=== PATIENT | female | born 1990 | race Caucasian/White ===

== ENCOUNTER 2018-06-09 12:07 | Inpatient (IN) | payer OTHER ==
[2018-06-09] MEDS ORDERED: Sodium Chloride 0.9% 10 ML Syringe FLUSH PRN ×2 (12:44→17:52)
[2018-06-09] MEDS ORDERED: Lactated Ringers 1,000 ML IV SCH ×3 (12:45→15:15)
[2018-06-09] MEDS ORDERED: fentaNYL 100 MCG/2 ML SDV IVPUSH PRN (17:52)
[2018-06-09] MEDS ORDERED: Acetaminophen 325 MG Tab PO PRN (17:52)
[2018-06-09] MEDS ORDERED: Ondansetron 4 MG/2 ML SDV IV PRN (17:52)
--- NOTE | 2018-06-09 18:04 | PCM.LDHP ---
L&D History of Present Illness - General Date of Service: 06/09/18 Admit Problem/Dx: Patient Status Order with Admit Dx/Problem 06/09/18 15:00 Admission Status [Patient Status] [ADT] Routine 06/09/18 17:52 Patient Status [ADT] Routine Admission Diagnosis/Problem Admission Diagnosis/Problem Source of Information: Patient History Limitations: Reports: No Limitations - Related Data Allergies/Adverse Reactions: Allergies Allergy/AdvReac Type Severity Reaction Status Date / Time amoxicillin Allergy Hives Verified 01/15/16 20:55 cefaclor [From Ceclor] Allergy Hives Verified 01/15/16 20:55 Penicillins Allergy Hives Verified 01/15/16 20:55 Home Medications: Home Meds Fluticasone Propionate [Flonase] 1 spray JAME DAILY 06/09/18 [History] Omeprazole 1 tab PO DAILY 06/09/18 [History] Vit W-Ca,Fe,FA(<1 mg) [ Vitamins] 1 tab PO DAILY 06/09/18 [ History] Past Medical History Other OB/BYN History: Precancerous cervical cells - Past Surgical History HEENT Surgical History: Reports: Oral Surgery Female Surgical History: Reports: LEEP Social & Family History - Family History Family Medical History: Noncontributory - Tobacco Use Smoking Status *Q: Current Every Day Smoker Years of Tobacco use: 11 Packs/Tins Daily: 1 - Caffeine Use Caffeine Use: Reports: Energy Drinks - Recreational Drug Use Recreational Drug Use: No H&P Review of Systems - Review of Systems: Review Of Systems: See Below General: Reports: No Symptoms HEENT: Reports: No Symptoms Pulmonary: Reports: No Symptoms Cardiovascular: Reports: No Symptoms Gastrointestinal: Reports: No Symptoms Genitourinary: Reports: No Symptoms Musculoskeletal: Reports: No Symptoms Skin: Reports: No Symptoms Psychiatric: Reports: No Symptoms Neurological: Reports: No Symptoms Hematologic/Lymphatic: Reports: No Symptoms Immunologic: Reports: No Symptoms L&D Exam - Exam Exam: See Below - Vital Signs Vital Signs: Last Vital Signs Temp 37.1 C 06/09/18 14:00 Pulse 69 06/09/18 14:00 Resp 16 06/09/18 14:00 BP 113/69 06/09/18 14:00 Pulse Ox 96 06/09/18 14:00 Weight: 76.3 kg - OB Specific Contraction Duration (sec): 40-80 Contraction Frequency (min): 2-4 Contraction Intensity: Mild Movement: Active Heart Tones: Present Heart Rate (FHR) Variability: Marked (>25 bpm) Presentation: Vertex - Rogers Score Rogers Score Cervix Position: Posterior Rogers Score Consistency: Soft Rogers Score Effacement: 31-50% Rogers Score Dilation: 1-2 cm Rogers Score Infant's Station: -2 Rogers Score Total: 5 - Exam General: Alert, Oriented HEENT: PERRLA, Conjunctiva Clear, EACs Clear, EOMI, Hearing Intact, Mucosa Moist & [place], Nares Patent, Normal Nasal Septum, Posterior Pharynx Clear, TMs Clear Neck: Supple, Trachea Midline Lungs: Clear to Auscultation, Normal Respiratory Effort Cardiovascular: Regular Rate, Regular Rhythm GI/Abdominal Exam: Normal Bowel Sounds, Soft, Non-Tender, No Organomegaly, No Distention, No Abnormal Bruit, No Mass, Pelvis Stable Rectal Exam: Normal Exam, Normal Rectal Tone Genitourinary: Normal external exam, Normal bimanual exam, Normal speculum exam Back Exam: Normal Inspection, Full Range of Motion Extremities: Normal Inspection, Normal Range of Motion, Non-Tender, No Pedal Edema, Normal Capillary Refill Skin: Warm, Dry, Intact Neurological: Cranial Nerves Intact, Reflexes Equal Bilateral DTR: 2+: Patella (L), Patella (R) Psychiatric: Alert, Normal Affect, Normal Mood - Patient Data Lab Results Last 24 hrs: Laboratory Results - last 24 hr 06/09/18 06/09/18 06/09/18 Range/Units 12:44 15:16 15:28 WBC 11.4 H (4.5-11.0) K/uL RBC 3.86 (3.30-5.50) M/uL Hgb 12.0 (12.0-15.0) g/dL Hct 35.4 L (36.0-48.0) % MCV 92 (80-98) fL MCH 31 (27-31) pg MCHC 34 (32-36) % Plt Count 175 (150-400) K/uL Neut % (Auto) 71 H (36-66) % Lymph % (Auto) 21 L (24-44) % [place] % (Auto) 6 (2-6) % Eos % (Auto) 2 (2-4) % Baso % (Auto) 0 (0-1) % Urine Color Yellow Urine Appearance Slightly cloudy Urine pH 6.0 (4.5-8.0) Ur Specific [place] 1.010 (1.008-1.030) Urine Protein Negative (NEGATIVE) mg/dL Urine Glucose (UA) Normal (NEGATIVE) mg/dL Urine Ketones Negative (NEGATIVE) mg/dL Urine Occult Blood Negative (NEGATIVE) Urine Nitrite Negative (NEGATIVE) Urine Bilirubin Negative (NEGATIVE) Urine Urobilinogen Normal (NORMAL) mg/dL Ur Leukocyte Esterase Negative (NEGATIVE) Urine RBC Not seen (0-5) Urine WBC 0-5 (0-5) Ur Epithelial Cells Moderate Amorphous Sediment Not seen Urine Bacteria Few Urine Mucus Not seen Urine Opiates Screen Negative (NEGATIVE) Ur Oxycodone Screen Negative (NEGATIVE) Urine Methadone Screen Negative (NEGATIVE) Ur Propoxyphene Screen Negative (NEGATIVE) Ur Barbiturates Screen Negative (NEGATIVE) Ur Tricyclics Screen Negative (NEGATIVE) Ur Phencyclidine Scrn Negative (NEGATIVE) Ur Amphetamine Screen Negative (NEGATIVE) U Methamphetamines Scrn Negative (NEGATIVE) Urine MDMA Screen Negative (NEGATIVE) U Benzodiazepines Scrn Negative (NEGATIVE) U Cocaine Metab Screen Negative (NEGATIVE) U Marijuana (THC) Screen Negative (NEGATIVE) Result Diagrams: 06/09/18 15:28 - Problem List (1) SNOMED Code(s): 30995492 ICD Code: Z34.90 - ENCNTR FOR SUPRVSN OF NORMAL , UNSP, UNSP TRIMESTER Status: Acute Current Visit: Yes Qualifiers: Weeks of gestation: 38 weeks Qualified Code(s): Z3A.38 - 38 weeks gestation of (2) Encounter for induction of labor SNOMED Code(s): 403914192 ICD Code: Z34.90 - ENCNTR FOR SUPRVSN OF NORMAL , UNSP, UNSP TRIMESTER Status: Acute Current Visit: Yes (3) Marked variability in heart rate SNOMED Code(s): 028991213 ICD Code: O36.8390 - MATERN CARE FOR ABNLT FETL HRT RATE OR RHYM, UNSP TRI, UNSP Status: Acute Current Visit: Yes Problem List Initiated/Reviewed/Updated: Yes Orders Last 24hrs: Active Orders 24 hr Category Date Time Status Admission Status [Patient Status] [ADT] Routine ADT 06/09/18 15:00 Active Patient Status [ADT] Routine ADT 06/09/18 17:52 Active Ambulate [RC] PER UNIT ROUTINE Care 06/09/18 17:52 Active Communication Order [RC] ASDIRECTED Care 06/09/18 17:52 Active Heart Tones [RC] PER UNIT ROUTINE Care 06/09/18 17:52 Active Non Stress Test [RC] Click to Edit Care 06/09/18 17:52 Active May Shower [RC] ASDIRECTED Care 06/09/18 17:52 Active Notify Provider Vital Signs [RC] PRN Care 06/09/18 17:52 Active Notify Provider [RC] PRN Care 06/09/18 17:52 Active OB Check [OM.PC] Click to Edit Care 06/09/18 12:44 Ordered Up ad Maru [RC] ASDIRECTED Care 06/09/18 17:52 Active VTE/DVT Education [RC] Click to Edit Care 06/09/18 17:53 Active Vital Signs [RC] PER UNIT ROUTINE Care 06/09/18 17:52 Active Clear Liquid Diet [DIET] Diet 06/09/18 Dinner Active Acetaminophen [Tylenol] Med 06/09/18 17:52 Ordered 650 mg PO Q4H PRN Lactated Ringers [Ringers, Lactated] 1,000 ml Med 06/09/18 12:45 Active IV ASDIRECTED Lactated Ringers [Ringers, Lactated] 1,000 ml Med 06/09/18 14:30 Active IV ASDIRECTED Lactated Ringers [Ringers, Lactated] 1,000 ml Med 06/09/18 15:15 Active IV ASDIRECTED Ondansetron [Zofran] Med 06/09/18 17:52 Ordered 4 mg IV Q4H PRN Oxytocin/Normal Saline [Pitocin in NS 20 Units/1,000 ML Med 06/09/18 15:15 Active ] 20 unit in 1,000 ml IV TITRATE Sodium Chloride 0.9% [Saline Flush] Med 06/09/18 12:44 Active 10 ml FLUSH ASDIRECTED PRN Sodium Chloride 0.9% [Saline Flush] Med 06/09/18 17:52 Ordered 10 ml FLUSH ASDIRECTED PRN Vancomycin 1 gm Med 06/09/18 16:00 Active Sodium Chloride 0.9% [Normal Saline] 250 ml IV Q12H fentaNYL [Sublimaze] Med 06/09/18 17:52 Ordered 100 mcg IVPUSH Q1H PRN DVT/VTE Prophylaxis Reflex [OM.PC] Routine Oth 06/09/18 17:52 Ordered Saline Lock Insert [OM.PC] Routine Oth 06/09/18 12:44 Ordered Saline Lock Insert [OM.PC] Routine Oth 06/09/18 17:52 Ordered Resuscitation Status Routine Resus Stat 06/09/18 17:52 Ordered Medication Orders Acetaminophen (Tylenol) 650 mg PO Q4H PRN PRN Reason: Pain (Mild 1-3) and fever Fentanyl (Sublimaze) 100 mcg IVPUSH Q1H PRN PRN Reason: Pain (moderate 4-6) Lactated Ringer's (Ringers, Lactated) 1,000 mls @ 999 mls/hr IV ASDIRECTED DEBORAH Last Admin: 06/09/18 12:30 Dose: 999 mls/hr Lactated Ringer's (Ringers, Lactated) 1,000 mls @ 999 mls/hr IV ASDIRECTED [facility] Last Admin: 06/09/18 12:40 Dose: 999 mls/hr Lactated Ringer's (Ringers, Lactated) 1,000 mls @ 0 mls/hr IV ASDIRECTED DEBORAH Oxytocin/Sodium Chloride (Pitocin In Ns 20 Units/1,000 Ml) 20 unit in 1,000 mls @ 6 mls/hr IV TITRATE DEBORAH; Protocol Last Titration: 06/09/18 17:24 Dose: 15 mls/hr Titration: 06/09/18 16:43 Dose: 12 mls/hr Titration: 06/09/18 16:09 Dose: 9 mls/hr Admin: 06/09/18 15:37 Dose: 2 munits/min, 6 mls/hr Vancomycin HCl 1 gm/ Sodium (Chloride) 250 mls @ 150 mls/hr IV Q12H [facility] Last Admin: 06/09/18 15:41 Dose: 150 mls/hr Ondansetron HCl (Zofran) 4 mg IV Q4H PRN PRN Reason: Nausea/Vomiting Sodium Chloride (Saline Flush) 10 ml FLUSH ASDIRECTED PRN PRN Reason: Keep Vein Open Sodium Chloride (Saline Flush) 10 ml FLUSH ASDIRECTED PRN PRN Reason: Keep Vein Open Assessment/Plan Comment:: 06/09/2018 27 yo at 38 5/7 gestational weeks was seen in the clinic today and noted to have bradycardia. Was sent to L&D and was noted to have marked variablity. Decision to medically induce was made. SVE-1/50/-2 [place]-5 FHTs occasionally category II No contractions Plan- Medical induction for FHTs Will initiate a Pitocin Test If FHTs continue category II will proceed to a primary Vancomycin per policy for GBS positive Continue to monitor for labor Continue to monitor FHTS Pain per patient's request
--- NOTE | 2018-06-09 20:44 | PCM.PNLD ---
Labor Progress Note - VS & Meds Vital Signs: Last Vital Signs Temp 36.8 C 06/09/18 19:29 Pulse 70 06/09/18 19:29 Resp 16 06/09/18 19:29 BP 136/58 L 06/09/18 19:29 Pulse Ox 95 06/09/18 19:29 Active Medications: Current Medications Acetaminophen (Tylenol) 650 mg PO Q4H PRN PRN Reason: Pain (Mild 1-3) and fever Fentanyl (Sublimaze) 100 mcg IVPUSH Q1H PRN PRN Reason: Pain (moderate 4-6) Lactated Ringer's (Ringers, Lactated) 1,000 mls @ 999 mls/hr IV ASDIRECTED [facility] Last Admin: 06/09/18 12:30 Dose: 999 mls/hr Lactated Ringer's (Ringers, Lactated) 1,000 mls @ 999 mls/hr IV ASDIRECTED [facility]BRO[facility] Last Admin: 06/09/18 12:40 Dose: 999 mls/hr Lactated Ringer's (Ringers, Lactated) 1,000 mls @ 0 mls/hr IV ASDIRECTED [facility] Oxytocin/Sodium Chloride (Pitocin In Ns 20 Units/1,000 Ml) 20 unit in 1,000 mls @ 6 mls/hr IV TITRATE DEBORAH; Protocol Last Titration: 06/09/18 18:49 Dose: 21 mls/hr Vancomycin HCl 1 gm/ Sodium (Chloride) 250 mls @ 150 mls/hr IV Q12H [facility] Last Admin: 06/09/18 15:41 Dose: 150 mls/hr Ondansetron HCl (Zofran) 4 mg IV Q4H PRN PRN Reason: Nausea/Vomiting Sodium Chloride (Saline Flush) 10 ml FLUSH ASDIRECTED PRN PRN Reason: Keep Vein Open Discontinued Medications Sodium Chloride (Saline Flush) 10 ml FLUSH ASDIRECTED PRN PRN Reason: Keep Vein Open - Uterine Contractions Uterine Monitoring Mode: External [place] Contraction Frequency (min): 1-4 Contraction Duration (sec): 40-80 Contraction Intensity: Mild Uterine Resting Tone: Soft - Monitoring Heart Rate (FHR) Variability: Marked (>25 bpm) - Labor Progress (Free Text) Labor Progress: 06/09/2018 FHTs remain to be a category II at times Contractions irregular on pitocin Education done with patient on risk for continuing pitocin versus a primary c- section Patient and her significant other have weighed their options and want to proceed with a primary . OR crew called, Dr. Mcgowan notified
--- NOTE | 2018-06-09 20:46 | PCM.PNLD ---
Labor Progress Note - VS & Meds Vital Signs: Last Vital Signs Temp 36.8 C 06/09/18 19:29 Pulse 70 06/09/18 19:29 Resp 16 06/09/18 19:29 BP 136/58 L 06/09/18 19:29 Pulse Ox 95 06/09/18 19:29 Active Medications: Current Medications Acetaminophen (Tylenol) 650 mg PO Q4H PRN PRN Reason: Pain (Mild 1-3) and fever Fentanyl (Sublimaze) 100 mcg IVPUSH Q1H PRN PRN Reason: Pain (moderate 4-6) Lactated Ringer's (Ringers, Lactated) 1,000 mls @ 999 mls/hr IV ASDIRECTED [facility]BORAH Last Admin: 06/09/18 12:30 Dose: 999 mls/hr Lactated Ringer's (Ringers, Lactated) 1,000 mls @ 999 mls/hr IV ASDIRECTED [facility] Last Admin: 06/09/18 12:40 Dose: 999 mls/hr Lactated Ringer's (Ringers, Lactated) 1,000 mls @ 0 mls/hr IV ASDIRECTED [facility] Oxytocin/Sodium Chloride (Pitocin In Ns 20 Units/1,000 Ml) 20 unit in 1,000 mls @ 6 mls/hr IV TITRATE DEBORAH; Protocol Last Titration: 06/09/18 18:49 Dose: 21 mls/hr Vancomycin HCl 1 gm/ Sodium (Chloride) 250 mls @ 150 mls/hr IV Q12H [facility] Last Admin: 06/09/18 15:41 Dose: 150 mls/hr Ondansetron HCl (Zofran) 4 mg IV Q4H PRN PRN Reason: Nausea/Vomiting Sodium Chloride (Saline Flush) 10 ml FLUSH ASDIRECTED PRN PRN Reason: Keep Vein Open Discontinued Medications Sodium Chloride (Saline Flush) 10 ml FLUSH ASDIRECTED PRN PRN Reason: Keep Vein Open - Uterine Contractions Uterine Monitoring Mode: External [place] Contraction Frequency (min): 1-4 Contraction Duration (sec): 40-80 Contraction Intensity: Mild Uterine Resting Tone: Soft - Monitoring Heart Rate (FHR) Variability: Marked (>25 bpm) Decelerations: Variable - Labor Progress (Free Text) Labor Progress: 06/09/2018 Patient requesting to remain trying pitocin for induction of a vaginal delivery. Explained risks and benefits to patient. FHTs occasionally marked variability with lower baseline. Will continue to monitor patient closely
[2018-06-09] MEDS ORDERED: cefOXitin 1 GM Vial ONE (20:47)
[2018-06-09] MEDS ORDERED: Oxytocin 10 Units/1 ML SDV ONE ×2 (20:47→21:04)
[2018-06-09] MEDS ORDERED: Meropenem 500 MG SDV ONE ×2 (21:02→21:04)
[2018-06-09] MEDS ORDERED: Sodium Chloride 0.9% 10 ML ONE (21:04)
[2018-06-09] MEDS ORDERED: ePHEDrine 50 MG/ML SDV ONE (21:25)
[2018-06-09] MEDS ORDERED: Naloxone 0.4 MG/ML SDV IV PRN (23:22)
[2018-06-09] MEDS ORDERED: HYDROmorphone/Normal Saline 15 MG/30 ML PCA IV PRN (23:22)
[2018-06-09] MEDS: Meropenem 500 MG in Sodium Chloride 0.9% 50 ML IV SCH (23:58)
[2018-06-10] MEDS: Dextrose 5%-Lactated Ringers 1,000 ML IV SCH ×2 (00:38→07:43)
[2018-06-10] MEDS: Meropenem 500 MG in Sodium Chloride 0.9% 50 ML IV SCH ×2 (03:35→11:02)
[2018-06-10] MEDS ORDERED: Fluticasone Propionate Nasal Spray 16 GM Bottle NASBOTH PRN (08:17)
[2018-06-10] MEDS ORDERED: Dextrose 5%-Lactated Ringers 1,000 ML IV SCH (08:30)
[2018-06-10] MEDS: Docusate Sodium 100 MG Cap PO SCH ×2 (11:04→21:00)
[2018-06-10] MEDS: Acetaminophen/oxyCODONE 325-5 MG Tab PO PRN ×2 (16:31→21:00)
[2018-06-10] MEDS: Ibuprofen 600 MG Tab PO PRN (18:09)
[2018-06-11] MEDS: Acetaminophen/oxyCODONE 325-5 MG Tab PO PRN ×4 (01:07→22:34)
[2018-06-11] MEDS ORDERED: Magnesium Hydroxide 400 MG/5 ML Susp 30 ML Cup PO ONE (09:00)
[2018-06-11] MEDS ORDERED: Lanolin 100% Cream 40 GM Tube TOP PRN (09:08)
[2018-06-11] MEDS: Ibuprofen 600 MG Tab PO PRN ×2 (09:17→18:18)
[2018-06-11] MEDS: Bisacodyl 5 MG Tab PO SCH ×2 (09:19→21:24)
[2018-06-11] MEDS: Docusate Sodium 100 MG Cap PO SCH ×2 (09:19→21:24)
[2018-06-11] MEDS ORDERED: Magnesium Hydroxide 400 MG/5 ML Susp 30 ML Cup PO PRN (10:00)
--- NOTE | 2018-06-11 14:22 | OR ---
DATE OF PROCEDURE: 06/09/2018 INDICATIONS: This is a 27-year-old presenting with her first at near-term. She was seen and was noted to have a heart rate of around 105 in terms of the heart tones, which did not show much in the way of variability. After further evaluation, it was felt that she meets indication for a section due to the findings as outlined in Jewels Corbett's, CNM, note. The plan is to proceed with a section with a spinal anesthetic. The potential risks of the procedure were reviewed with the patient including bleeding, infection, injury to mother or baby, the likely need for subsequent sections, if her is hard, and the facility is equipped to do vaginal births after section were all gone over, and she wishes to proceed. DETAILS OF PROCEDURE: The patient was taken to the operating room. After spinal anesthetic was placed, the patient was positioned in a supine position with a roll underneath the right hip. Bar[place]ona catheter was inserted, and the abdomen was prepped and draped. A transverse Pfannenstiel-type incision was made and carried down through the skin and subcutaneous tissue and through the anterior rectus sheath. Subrectus sheath flaps were then raised superiorly and inferiorly, and the midline peritoneum divided. Peritoneal reflection of the bladder on the uterus was then divided, and the bladder dissected downward. A transverse lower uterine incision was made and a viable female was delivered through the vertex presentation. The fluid present in the uterus was cleared. The cord was clamped and cut, and routine care given off the field per Dr. Jewels Corbett. The scores at 1 and 5 minutes were 8 and 9 respectively. Placenta and membranes were then delivered without difficulty and it was notable that the placenta had quite extensive calcifications and on further inspection appeared to have a focal area of subtle abruption. Although, it was notable that the amniotic fluid itself was clear upon entering the uterus. The patient was given an IV and intrauterine cefoxitin and IV meropenem. Good uterine contractions were noted. The uterus was then closed with 2 layers of 2-0 Vicryl stitch as was also used for the peritoneal reflection of the bladder, being reapproximated over the uterine incision. The midline peritoneum and musculature were then approximated with a #2 Vicryl stitch, and the anterior rectus sheath was similarly closed with a #2 Vicryl stitch. The subcutaneous tissue was then closed with 2 layers of 3- 0 Vicryl stitch deep and a 4-0 Vicryl subcuticular stitch. Steri-Strip was applied. The patient was taken to the recovery room in a satisfactory condition. There were no evident complications. Foreign Mcgowan MD /[id number]
--- NOTE | 2018-06-11 15:07 | PN ---
DATE OF SERVICE: 06/10/2018 The patient has been afebrile with stable vital signs. She is status post caesarean section last evening. Both her and the baby appeared to be doing well at this point. Hemoglobin is 12.4, which is stable from preoperatively. Urine output has been satisfactory. Plan will be to back down on the IV rate, begin a full-liquid diet and advancing it as tolerated to a more regular diet, begin some bowel stimulation, maximize activity, and work with pulmonary toilet. Foreign Mcgowan MD /[id number]
--- NOTE | 2018-06-11 15:08 | PN ---
DATE OF SERVICE: 06/11/2018 The patient has been afebrile with stable vital signs. Oral intake is fairly good. She is passing some gas. No bowel movement as of yet. She is switched over to oral pain medication. We will give her some bowel stimulation today and have her get in the shower. She probably will be ready for discharge home tomorrow. The antibiotic issue with her strep issue was reviewed with nursing, and the meropenem that she received postoperatively should be sufficient for treatment of that. Foreign Mcgowan MD /[id number]
[2018-06-12] MEDS: Ibuprofen 600 MG Tab PO PRN ×2 (00:16→08:13)
[2018-06-12] MEDS: Acetaminophen/oxyCODONE 325-5 MG Tab PO PRN ×2 (05:26→10:00)
[2018-06-12] MEDS: Docusate Sodium 100 MG Cap PO SCH (08:07)
[2018-06-12] MEDS: Bisacodyl 5 MG Tab PO SCH (08:07)
[2018-06-12 10:58] VITALS: BP 132/61
--- NOTE | 2018-06-12 11:20 | DISCH ---
ADMISSION DIAGNOSES: heart tones, category 2; contractions irregular, on Pitocin. DISCHARGE DIAGNOSES: section with spinal anesthetic, delivery of female. HISTORY: Agnes Perez is a 27-year-old female, presenting with first at near- term. She was first seen and was noted to have heart rate of 105 for heart tones, which did not show much in the way of variability. She was on Pitocin, and she did meet the needs for due to above findings. After preoperative evaluation and discussion of possible risks and possible complications, she wished to proceed with surgical procedure. HOSPITAL COURSE: Agnes had her on 06/09/2018. No complications. On postoperative day #1, hemoglobin 12.4. Urine output satisfactory. IV was decreased. She was started on bowel stimulation. On postoperative day #2, she remained afebrile, changed to oral pain medication, and was able to shower. On postoperative day #3, she was able to be discharged to home without any complications. PHYSICAL EXAMINATION: GENERAL: Agnes Perez is a 27-year-old female. VITAL SIGNS: Height is 5 feet 2 inches. Weight is 168 pounds. TPR is 98.2, 66, 16, and blood pressure 112/58. HEENT: Negative. NECK: Supple. HEART: Regular rate and rhythm. LUNGS: Clear. ABDOMEN: Soft. Aquacel dressing is on at the time of rounds. EXTREMITIES: Without peripheral edema and no calf tenderness. DISPOSITION: Discharged to home. CONDITION: Stable and improving. FOLLOWUP APPOINTMENT: Kaylie Em PA-C, on 06/16/2018 at 11 a.m. Followup appointment with Jewels Corbett CNM, primary care provider, to be scheduled. DISCHARGE MEDICATIONS: Home Medications: 1. Percocet 5/325 mg 1 to 2 every 4 hours p.r.n. pain, #40. 2. Milk of magnesia 30 mL p.o. to take one daily, 2 to be sent home with the patient. 3. Dulcolax 10 mg oral b.i.d. until BM. 4. Colace 100 mg b.i.d., #100. 5. Motrin 600 mg oral q.6 hours p.r.n. pain, #40. 6. Lanolin 40 grams topical, use as directed. Tube will be sent home with the patient. She is to resume her home medications of; 1. vitamins one daily. 2. Omeprazole one tablet oral daily. 3. Flonase one spray in each nostril once daily. DISCHARGE DIET: Usual diet as tolerated. Drink 8 to 10 glasses of water a day. ACTIVITY: As tolerated. No lifting over 10 pounds or baby in car seat for 6 weeks[address] Driving, do not drive while on narcotic pain medication. Shower/bathing, may shower. No tub bath or swimming for 6 weeks. DISCHARGE INSTRUCTIONS: Notify provider if any fever, increased pain, swelling, redness, or drainage. Wound incision care, keep site clean and dry.
== END 2018-06-12 14:45 | disposition home or self-care (01) | DRG 766 ==
LOC: JP.OBCHECK 12:07 → JP.OB 15:00 → OBSVTOIN 21:47 → JP.OB 21:47 → JP.MS 23:31
PROVIDERS: ADMIT Surgery; ATTEND Advanced Practice Midwife
PROC: 10D00Z1 Extraction of Products of Conception, Low, Open Approach (ICD-10-PCS; principal; 2018-06-09)
PROC: 3E033VJ Introduction of Other Hormone into Peripheral Vein, Percutaneous Approach (ICD-10-PCS; 2018-06-09)
DX: O76 Abnormality in fetal heart rate and rhythm complicating labor and delivery (principal); O99.334 Smoking (tobacco) complicating childbirth; Z3A.38 38 weeks gestation of pregnancy; Z37.0 Single live birth; O99.824 Streptococcus B carrier state complicating childbirth; Z88.1 Allergy status to other antibiotic agents; Z88.0 Allergy status to penicillin
CPT/HCPCS: 36415; 80305-QW; 81001; 85025; 94762; 99211; A9270-GY; J0694; J1170; J2185; J2405; J2590; J3370; J7042; J7050; J7120

== ENCOUNTER 2019-05-10 08:18 | Day surgery (SDC) | payer MEDICAID, OTHER ==
[~2019-05-10 08:18] MED LIST: Bupivacaine 0.5% 50 ML MDV ONE; Dexamethasone 4 MG/ML SDV ONE; Glycopyrrolate 0.2 MG/ML 5 ML MDV ONE; Lidocaine 1% with EPINEPHrine 1:100,000 50 ML MDV ONE; Neostigmine Methylsulfate 1 MG/ML 5 ML Syringe ONE; Ondansetron 4 MG/2 ML SDV ONE; Propofol 200 MG/20 ML SDV ONE; Rocuronium 50 MG/5 ML Vial ONE; Succinylcholine 200 MG/10 ML MDV ONE; fentaNYL 250 MCG/5 ML SDV ONE
[2019-05-10] MEDS ORDERED: Levofloxacin/Dextrose 5%-Water 500 MG in Premix Bag 1 BAG IV ONE (09:00)
[2019-05-10] MEDS ORDERED: Dextrose 5%-Lactated Ringers 1,000 ML IV SCH (09:15)
[2019-05-10] MEDS ORDERED: Midazolam 1 MG/ML 2 ML SDV ONE (10:56)
[2019-05-10] MEDS ORDERED: Bacitracin Oint 1 GM U/D Packet ONE (11:16)
[2019-05-10 12:35] VITALS: BP 103/65; PULSE 57
--- NOTE | 2019-05-18 23:41 | OR ---
DATE OF PROCEDURE: 05/10/2019 PREOPERATIVE DIAGNOSIS: Hidradenitis suppurativa, right labial area. POSTOPERATIVE DIAGNOSIS: Hidradenitis suppurativa, right labial area. OPERATIVE PROCEDURE: Excision of hidradenitis suppurativa, right labial area ([id number]). ANESTHESIA: General. INDICATIONS FOR PROCEDURE: This is a 28-year-old female presenting with active hidradenitis suppurativa involving the right labial region. After discussion, she wished to proceed with excision. Potential risks including bleeding, infection, some cosmetic or functional deformity of the labia were all reviewed with the patient and she wishes to proceed. DETAILS OF PROCEDURE: The patient was taken to the operating room, and after general endotracheal anesthesia was induced, the labial area and surrounding skin were prepped and draped. A vertically oriented elliptical incision around the area of concern was then made and carried down through the skin and subcutaneous tissue. Using combination of sharp and cautery dissection, the area of involvement was removed maintaining an area of relatively noninflamed subcutaneous tissue at the level of the excision, i.e. the area of the gross infection was not entered, and this specimen delivered from the field. Incision was then closed with 2 layers of 4-0 Vicryl stitch deep and a 5-0 Prolene skin stitch. Dressing was applied. The patient was taken to the recovery room in satisfactory condition. There were no evident complications. Foreign Mcgowan MD /[id number]
== END 2019-05-10 12:50 | disposition home or self-care (01) ==
LOC: JP.SDS 08:18
PROVIDERS: ATTEND Surgery
DX: L73.2 Hidradenitis suppurativa (principal); N76.4 Abscess of vulva; F17.200 Nicotine dependence, unspecified, uncomplicated
CPT/HCPCS: 11462; 81025; 87070; 87075; 87077; 87205; 88304; J1956; J2250; J2704; J3010; J3490; J7042; 32555; J0330; J1100; J2405; J2710

== ENCOUNTER 2020-10-17 05:29 | Inpatient (IN) | payer MEDICAID ==
[2020-10-17] MEDS ORDERED: Lactated Ringers 1,000 ML IV SCH (06:00)
[2020-10-17] MEDS ORDERED: cefOXitin 1 GM Vial ONE (06:34)
[2020-10-17] MEDS ORDERED: Oxytocin 10 Units/1 ML SDV ONE ×2 (06:34→07:42)
[2020-10-17] MEDS ORDERED: ePHEDrine 50 MG/ML SDV ONE (06:58)
[2020-10-17] MEDS ORDERED: cefOXitin 2 GM Vial ONE (06:58)
[2020-10-17] MEDS ORDERED: Levofloxacin 500 MG/20 ML SDV ONE (07:15)
[2020-10-17] MEDS ORDERED: Lactated Ringers 1,000 ML ONE (07:42)
[2020-10-17] MEDS ORDERED: Oxytocin 10 Units/1 ML SDV IM ONE (07:45)
[2020-10-17] MEDS ORDERED: fentaNYL 100 MCG/2 ML SDV IVPUSH ONE (08:54)
[2020-10-17] MEDS ORDERED: Ondansetron 4 MG/2 ML SDV IVPUSH PRN (09:03)
[2020-10-17] MEDS ORDERED: hydrOXYzine HCL 100 MG/2 ML SDV IM PRN (09:04)
[2020-10-17] MEDS ORDERED: Dextrose 5%-Lactated Ringers 1,000 ML IV SCH (09:15)
[2020-10-17] MEDS ORDERED: Acetaminophen 500 MG Tab PO SCH (10:00)
[2020-10-17] MEDS: Ibuprofen 600 MG Tab PO SCH ×3 (11:00→21:51)
[2020-10-17] MEDS: Pantoprazole 40 MG Tab.CR PO SCH (11:36)
[2020-10-17] MEDS: Sertraline 50 MG Tab PO SCH (11:42)
[2020-10-17] MEDS: Acetaminophen/oxyCODONE 325-5 MG Tab PO PRN ×2 (12:29→21:50)
[2020-10-17] MEDS ORDERED: Lanolin 100% Cream 40 GM Tube TOP PRN (18:53)
[2020-10-18] MEDS: Ibuprofen 600 MG Tab PO SCH ×2 (04:26→09:02)
[2020-10-18] MEDS ORDERED: Levofloxacin/Dextrose 5%-Water 500 MG in Premix Bag 1 BAG IV SCH (08:00)
[2020-10-18 08:15] VITALS: BP 120/59; PULSE 78
[2020-10-18] MEDS ORDERED: Bisacodyl 5 MG Tab PO SCH (09:00)
[2020-10-18] MEDS ORDERED: Docusate Sodium 100 MG Cap PO SCH (09:00)
[2020-10-18] MEDS: Sertraline 50 MG Tab PO SCH (09:02)
[2020-10-18] MEDS ORDERED: Ibuprofen 200 MG Tab, 24 Tab Bulk Bottle PO PRN (10:23)
[2020-10-18] MEDS ORDERED: Acetaminophen 325 MG Tab, 50 Tab Bulk Bottle PO PRN (10:23)
[2020-10-18] MEDS: Acetaminophen/oxyCODONE 325-5 MG Tab PO PRN (10:59)
[2020-10-18] MEDS: Pantoprazole 40 MG Tab.CR PO SCH (11:07)
--- NOTE | 2020-10-19 10:07 | DISCH ---
ADMISSION DIAGNOSES: Repeat section with term . DISCHARGE DIAGNOSES: section on 10/17/2020 with delivery of a viable male infant, 10/17/2020. Surgeon: Foreign Mcgowan MD. HISTORY: Agnes Perez is a 30-year-old female who had a previous , and she presented to the hospital for a scheduled . After preoperative evaluation and discussion of possible risks and possible complications, she wished to proceed with surgical procedure. HOSPITAL COURSE: Agnes had her section on 10/17/2020. She had no operative complications. On postoperative day, she was up ambulating, tolerating a regular diet. IV was decreased to 100 mL per hour, and she would like to have it saline locked. On postoperative day 1, pain was managed, activity good, oral intake and output adequate, vital signs stable, and she was able to be discharged to home later in the evening. PHYSICAL EXAMINATION: GENERAL: Agnes Perez is a 30-year-old female. She is alert and orientated. VITAL SIGNS: TPR at 0700 of 96.6, 78, and 16. Blood pressure 120/59. HEENT: Negative. NECK: Supple. HEART: Regular rate and rhythm. LUNGS: Clear. ABDOMEN: She has a low Pfannenstiel incision. It is glued, clean, and dry. Abdominal binder is on. FOLLOWUP APPOINTMENT: With Kaylie Em PA-C on 10/28/2020 at 11:15 a.m. HOME MEDICATIONS: 1. Percocet 5/325 mg one p.o. every 6 hours #28 for severe pain. 2. She is to take scheduled Motrin and alternate with scheduled acetaminophen. 3. Colace 100 mg p.o. b.i.d. #60. 4. Dulcolax 10 mg p.o. b.i.d. p.r.n. constipation #30. DIET: Regular diet as tolerated. Drink 8 to 10 glasses of water a day. ACTIVITY: No lifting greater than 10 pounds and baby in car seat. DRIVING: Do not drive for 1 week and while on the Percocet. DISCHARGE INSTRUCTIONS: Shower/bathing: May shower. No tub bathing or swimming for 6 weeks. Wound incision care: Keep operative site clean and dry. Wear abdominal binder for 2 weeks or longer. Notify provider if fever, increased pain, swelling, redness, drainage, nausea, or vomiting. SPECIAL INSTRUCTIONS: Use incentive spirometer 10 times every hour while awake for 1 week. /[id number]
--- NOTE | 2020-10-20 13:24 | PN ---
DATE OF SERVICE: 10/18/2020 SUBJECTIVE: Agnes is postoperative day #1 following a section. She is up ambulating. Pain is controlled with Percocet, ibuprofen, and Tylenol. She is nursing her baby. Oral intake 900. Voiding independently. REVIEW OF SYSTEMS: Remainder of review of systems negative for any pertinent positives and negatives. OBJECTIVE: GENERAL: Agnes Perez is a pleasant 30-year-old female. She is alert and orientated. VITAL SIGNS: TPR 97.2, 82, 18, blood pressure 140/51. HEENT: Negative. NECK: Supple. HEART: Regular rate and rhythm. LUNGS: Clear. ABDOMEN: Incision looks good. EXTREMITIES: Without peripheral edema. ASSESSMENT: Repeat , excision of peritoneal nodule for term with history of previous , peritoneal nodule outer aspect of the uterus, 2 mm. Date of procedure: 10/17/2020. Surgeon: Foreign Mcgowan MD. PLAN: 1. Saline lock IV. 2. May shower. 3. Colace 100 mg b.i.d. p.o. 4. Dulcolax 10 mg p.o. b.i.d. 5. Continue use of incentive spirometer. 6. We will evaluate p.r.n. or in a.m. Kaylie Em PA-C /[id number]
--- NOTE | 2020-10-26 18:25 | OR ---
DATE OF PROCEDURE: 10/17/2020 SURGEON: Foreign Mcgowan MD PREOPERATIVE DIAGNOSIS: Term with history of previous section. POSTOPERATIVE DIAGNOSES: 1. Term with history of previous section. 2. Peritoneal nodule on the anterior aspect of the uterus. OPERATIVE PROCEDURES: 1. Repeat section (99888). 2. Excision of peritoneal nodule on the anterior aspect of the uterus (04014). ANESTHESIA: Spinal. BUILDING REPAIR MAINTENANCE SUPERVISOR: Jewels Corbett CNM INDICATIONS FOR PROCEDURE: This is a 30-year-old female presenting with a term with history of previous . She had been planning a scheduled repeat section. will undergo a presently. Potential risks including bleeding, infection, injury to mother and her baby were discussed, and the patient wishes to proceed. DETAILS OF PROCEDURE: The patient was taken to the operating room. After spinal anesthetic was placed, a Barahona catheter was inserted, and the patient was positioned with a roll underneath the right hip and the abdomen prepped and draped. The previous Pfannenstiel incision was then reused and carried down through the skin, subcutaneous tissue, and through the anterior rectus sheath. Subrectus sheath flaps were then raised superiorly and inferiorly and midline peritoneum divided. Peritoneal reflection of the bladder on the uterus was then divided and low transverse uterine incision was made and a viable male was delivered through the vertex presentation. Cord clamped and cut. Routine care given off the field per Jewels Corbett. Placenta was delivered without difficulty along with the membranes. The patient was given IV and intrauterine oxytocin and IV cefoxitin. Good uterine contractions were noted. The uterus was closed with 2 layers of 2- 0 Vicryl stitch as was the peritoneal reflection of the bladder on the uterus. The patient was noted to have a roughly 2 mm white firm nodule on the anterior aspect of the uterus just to the left of the midline and slightly superior to the uterine closure site. This was excised, sent for histologic evaluation. At that point, no further problems noted. The midline peritoneum was reapproximated with #2 Vicryl stitch as was the anterior rectus sheath. Subcutaneous tissue was approximated with 2 layers of 3-0 and 4-0 Vicryl stitch deep and 4-0 Vicryl subcuticular stitch. Surgical glue was then applied, and the patient was taken to the recovery room in satisfactory condition. Per ACOG recommendations, Jewels Corbett participated as land surveyor assistant in this case. Foreign Mcgowan MD /[id number]
== END 2020-10-18 15:00 | disposition home or self-care (01) | DRG 788 ==
LOC: JP.SDS 05:29 → JP.MS 07:43
PROVIDERS: ADMIT Advanced Practice Midwife; ATTEND Surgery
PROC: 10D00Z1 Extraction of Products of Conception, Low, Open Approach (ICD-10-PCS; principal; 2020-10-17)
PROC: 0DBW0ZZ Excision of Peritoneum, Open Approach (ICD-10-PCS; 2020-10-17)
DX: O34.211 Maternal care for low transverse scar from previous cesarean delivery (principal); Z37.0 Single live birth; Z3A.39 39 weeks gestation of pregnancy
CPT/HCPCS: 36415; 59409; 80305-QW; 85025; 85027; 86850; 86900; 86901; 88305; 88307; A9270-GY; J0694; J1956; J2590; J3010; J7120; J7121

== ENCOUNTER 2021-07-01 18:46 | Emergency (ER) | payer MEDICAID, SELFPAY ==
[2021-07-01] MEDS ORDERED: Ibuprofen 800 MG Tab PO ONE (20:08)
[2021-07-01] MEDS ORDERED: Sodium Chloride 0.9% 1,000 ML IV SCH (20:30)
--- NOTE | 2021-07-01 21:00 | EDM.PDOC ---
ED HPI GENERAL MEDICAL PROBLEM - General Chief Complaint: ENT Problem Stated Complaint: FEVER, HEADACHE, EARACHE Time Seen by Provider: 07/01/21 19:42 Source of Information: Reports: Patient, RN History Limitations: Reports: No Limitations - History of Present Illness INITIAL COMMENTS - FREE TEXT/NARRATIVE: chief complaint: fever. sore throat. 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 She was so sick today her had to watch the 3 year old and assist with the 8 month old baby. She is tired, sick, not eating or drinking much today. report her urine is dark and slight painful. breast feeding, denies Onset: Gradual Onset Date: 06/30/21 Duration: Getting Worse Location: Reports: Generalized, Other (sore throat) Quality: Reports: Ache, Other (generalized body pain) Severity: Severe Improves with: Reports: None Worsens with: Reports: None Context: Reports: Activity Associated Symptoms: Reports: Fever/Chills, Loss of Appetite, Malaise throat and ears Pain Score (Numeric/FACES): 6 - Related Data Allergies Allergy/AdvReac Type Severity Reaction Status Date / Time amoxicillin Allergy Hives Verified 07/01/21 19:59 cefaclor [From Ceclor] Allergy Hives Verified 07/01/21 19:59 Penicillins Allergy Hives Verified 07/01/21 19:59 Home Meds: Home Meds #103/Iron Fumarate/Fa [ ] 1 tab PO DAILY 05/09/19 [History] Sertraline [Zoloft] 100 mg PO BEDTIME 05/09/19 [History] Omeprazole 20 mg PO ACBREAKFAST 10/15/20 [History] Ibuprofen [Motrin] 600 mg PO Q6HR tablet 10/18/20 [Rx] Past Medical History HEENT History: Reports: Impaired Vision, Other (See Below) Other HEENT History: Wears glasses. Gastrointestinal History: Reports: GERD [employer] [place] History: Reports: Other [employer] [place] History: Precancerous cervical cells Psychiatric History: Reports: Depression Dermatologic History: Reports: Other (See Below) Other Dermatologic History: Cyst removed from Left buttock- 2013, cyst removed from pelvic area - Infectious Disease History Infectious Disease History: Reports: Chicken Pox, Measles, Mumps - Past Surgical History HEENT Surgical History: Reports: Oral Surgery Female Surgical History: Reports: Section, LEEP Social & Family History - Family History Family Medical History: No Pertinent Family History - Tobacco Use Tobacco Use Status *Q: Current Every Day Tobacco User Years of Tobacco use: 15 Packs/Tins Daily: 1 - Caffeine Use Caffeine Use: Reports: Energy Drinks, Soda - Recreational Drug Use Recreational Drug Use: No - Living Situation & Occupation Living situation: Reports: , with Family (stay at home Mom) ED ROS GENERAL - Review of Systems Review Of Systems: See Below Constitutional: Reports: Fever, Chills, Malaise, Fatigue, Decreased Appetite HEENT: Reports: Ear Pain, Rhinitis, Sinus Problem, Throat Pain Respiratory: Reports: No Symptoms Cardiovascular: Reports: No Symptoms Endocrine: Reports: No Symptoms GI/Abdominal: Reports: No Symptoms : Reports: Frequency, Pain, Urgency Musculoskeletal: Reports: Muscle Pain Skin: Reports: No Symptoms Neurological: Reports: No Symptoms Psychiatric: Reports: No Symptoms Hematologic/Lymphatic: Reports: No Symptoms Immunologic: Reports: No Symptoms ED EXAM, GENERAL - Physical Exam Exam: See Below Exam Limited By: No Limitations General Appearance: Alert, WD/WN, Mild Distress, Other (crying during exam) Eye Exam: Bilateral Eye: EOMI, PERRL Ears: Normal External Exam, Normal Canal Ear Exam: Bilateral Ear: TM Red, TM Bulging Nose: Normal Inspection Throat/Mouth: Normal Lips, Normal Teeth, Normal Gums, Normal Voice, No Airway Compromise, Inflammation, Other (pharynx with inflammation, uvula midline without deviation, no exudate noted) Head: Atraumatic, Normocephalic Neck: Normal Inspection, Supple, Non-Tender, Full Range of Motion Respiratory/Chest: No Respiratory Distress, Lungs Clear, Normal Breath Sounds, No Accessory Muscle Use, Chest Non-Tender Cardiovascular: Normal Peripheral Pulses, Regular Rate, Rhythm, No Edema, No Gallop, No JVD, No Murmur, No Rub GI/Abdominal: Normal Bowel Sounds, Soft, Non-Tender, No Organomegaly, No Distention, No Abnormal Bruit, No Mass (Female) Exam: Deferred Rectal (Female) Exam: Deferred Back Exam: Normal Inspection, Full Range of Motion, NT Extremities: Normal Inspection, Normal Range of Motion, Non-Tender, Normal Capillary Refill, No Pedal Edema Neurological: No Motor/Sensory Deficits Psychiatric: Tearful Skin Exam: Warm, Dry, Intact, Normal Color, No Rash Lymphatic: No Adenopathy Course - Vital Signs Last Recorded V/S: Last Vital Signs Temp 100.0 F 07/01/21 21:49 Pulse 129 H 07/01/21 21:12 Resp 20 07/01/21 21:12 BP 117/76 07/01/21 21:12 Pulse Ox 95 07/01/21 21:12 - Orders/Labs/Meds Orders: Active Orders 24 hr Category Date Time Status CULTURE STREP A CONFIRMATION [] Stat Lab 07/01/21 21:05 Results STREP SCRN A RAPID W CULT CONF [] Stat Lab 07/01/21 21:05 Results Levofloxacin/Dextrose 5%-Water [Levaquin in D5W 500 MG/ Med 07/01/21 21:20 Active 100 ML] 500 mg Premix Bag 1 bag IV ONETIME Sodium Chloride 0.9% [Normal Saline] 1,000 ml Med 07/01/21 20:30 Active IV ASDIRECTED Medication Orders Sodium Chloride (Normal Saline) 1,000 mls @ 999 mls/hr IV ASDIRECTED DEBORAH Last Admin: 07/01/21 20:59 Dose: 999 mls/hr Documented by: DEEDEE Levofloxacin/Dextrose 500 mg/ (Premix) 100 mls @ 100 mls/hr IV ONETIME ONE Stop: 07/01/21 22:19 Last Admin: 07/01/21 21:41 Dose: 100 mls/hr Documented by: DEEDEE Labs: Laboratory Tests 07/01/21 07/01/21 07/01/21 Range/Units 20:58 20:58 21:05 WBC 17.3 H (4.5-11.0) K/uL RBC 4.59 (3.30-5.50) M/uL Hgb 14.4 D (12.0-15.0) g/dL Hct 41.9 (36.0-48.0) % MCV 91 (80-98) fL MCH 31 (27-31) pg MCHC 34 (32-36) % Plt Count 214 (150-400) K/uL Neut % (Auto) 77.9 H (36-66) % Lymph % (Auto) 13.5 L (24-44) % [place] % (Auto) 7.3 H (2-6) % Eos % (Auto) 0.8 L (2-4) % Baso % (Auto) 0.5 (0-1) % Sodium 135 L (140-148) mmol/L Potassium 4.0 (3.6-5.2) mmol/L Chloride 99 L (100-108) mmol/L Carbon Dioxide 23 (21-32) mmol/L Anion Gap 17.0 H (5.0-14.0) mmol/L BUN 13 (7-18) mg/dL Creatinine 0.7 (0.6-1.0) mg/dL Est Cr Clr Drug Dosing 96.33 mL/min Estimated GFR (MDRD) > 60 (>60) Glucose 99 (74-106) mg/dL Calcium 9.2 (8.5-10.1) mg/dL Total Bilirubin 0.3 (0.2-1.0) mg/dL AST 17 (15-37) U/L ALT 27 (12-78) U/L Alkaline Phosphatase 85 (46-116) U/L Total Protein 7.6 (6.4-8.2) g/dL Albumin 3.7 (3.4-5.0) g/dL Globulin 3.9 H (2.3-3.5) g/dL Albumin/Globulin Ratio 1.0 L (1.2-2.2) Urine Color (YELLOW) Urine Appearance (CLEAR) Urine pH (5.0-8.0) Ur Specific Kennedy (1.008-1.030) Urine Protein (NEGATIVE) mg/dL Urine Glucose (UA) (NEGATIVE) mg/dL Urine Ketones (NEGATIVE) mg/dL Urine Occult Blood (NEGATIVE) Urine Nitrite (NEGATIVE) Urine Bilirubin (NEGATIVE) Urine Urobilinogen (0.2-1.0) EU/dL Ur Leukocyte Esterase (NEGATIVE) Urine RBC (0-5) Urine WBC (0-5) Ur Epithelial Cells Amorphous Sediment Urine Bacteria Urine Mucus Urine HCG, Qual SARS CoV-2 RNA Rapid DANDRE Negative 07/01/21 07/01/21 Range/Units 21:39 21:39 WBC (4.5-11.0) K/uL RBC (3.30-5.50) M/uL Hgb (12.0-15.0) g/dL Hct (36.0-48.0) % MCV (80-98) fL MCH (27-31) pg MCHC (32-36) % Plt Count (150-400) K/uL Neut % (Auto) (36-66) % Lymph % (Auto) (24-44) % [place] % (Auto) (2-6) % Eos % (Auto) (2-4) % Baso % (Auto) (0-1) % Sodium (140-148) mmol/L Potassium (3.6-5.2) mmol/L Chloride (100-108) mmol/L Carbon Dioxide (21-32) mmol/L Anion Gap (5.0-14.0) mmol/L BUN (7-18) mg/dL Creatinine (0.6-1.0) mg/dL Est Cr Clr Drug Dosing mL/min Estimated GFR (MDRD) (>60) Glucose (74-106) mg/dL Calcium (8.5-10.1) mg/dL Total Bilirubin (0.2-1.0) mg/dL AST (15-37) U/L ALT (12-78) U/L Alkaline Phosphatase (46-116) U/L Total Protein (6.4-8.2) g/dL Albumin (3.4-5.0) g/dL Globulin (2.3-3.5) g/dL Albumin/Globulin Ratio (1.2-2.2) Urine Color Yellow (YELLOW) Urine Appearance Slightly cloudy A (CLEAR) Urine pH 6.0 (5.0-8.0) Ur Specific Kennedy >= 1.030 (1.008-1.030) Urine Protein 30 H (NEGATIVE) mg/dL Urine Glucose (UA) Negative (NEGATIVE) mg/dL Urine Ketones Negative (NEGATIVE) mg/dL Urine Occult Blood Negative (NEGATIVE) Urine Nitrite Negative (NEGATIVE) Urine Bilirubin Negative (NEGATIVE) Urine Urobilinogen 0.2 (0.2-1.0) EU/dL Ur Leukocyte Esterase Negative (NEGATIVE) Urine RBC 0-5 (0-5) Urine WBC 0-5 (0-5) Ur Epithelial Cells Moderate Amorphous Sediment Not seen Urine Bacteria Moderate Urine Mucus Not seen Urine HCG, Qual Negative SARS CoV-2 RNA Rapid DANDRE Meds: Medications Generic Name Dose Route Start Last Admin Trade Name Freq PRN Reason Stop Dose Admin Sodium Chloride 1,000 mls @ 999 mls/hr 07/01/21 20:30 07/01/21 20:59 Normal Saline IV 999 mls/hr ASDIRECTED DEBORAH Administration Levofloxacin/Dextrose 500 mg/ 100 mls @ 100 mls/hr 07/01/21 21:20 07/01/21 21:41 Premix IV 07/01/21 22:19 100 mls/hr ONETIME ONE Administration Discontinued Medications Generic Name Dose Route Start Last Admin Trade Name Freq PRN Reason Stop Dose Admin Ibuprofen 800 mg 07/01/21 20:08 07/01/21 20:59 Ibuprofen 800 Mg Tab PO 07/01/21 20:09 800 mg ONETIME ONE Administration - Re-Assessments/Exams Free Text/Narrative Re-Assessment/Exam: 07/01/21 21:08 Fever 103 vital signs 103.1-129-20 B/P 117/76 oxygen sat 95% on room air discussed with Mrs. Perez will test for illness and disease rehydrate with IV Fluids, given Motrin 800 mg po once agrees with plan of care. 07/01/21 21:24 CBC 17.3, hct 14.4, hct 41.9, plt 214, Rapid strep negative will give Levaquin 500mg IV once awaiting lab results continues to be febrile 103.1 pulse 120's discussed plan of care with Mrs. Perez 07/01/21 21:40 reports feeling much better with Motrin and IV fluids. wants to go home. discussed will need to wait on urine results. urine sample given. await results 07/01/21 22:03 urine no acute infection- does have + ketones negative hcg. 07/01/21 22:07 feeling much better, temp now at 100 will treat for ear infection and pharyngitis Departure - Departure Time of Disposition: 22:12 Disposition: Home, Self-Care 01 Condition: Good Clinical Impression: Otitis media, Pharyngitis - Discharge Information *PRESCRIPTION DRUG MONITORING PROGRAM REVIEWED*: Not Applicable *COPY OF PRESCRIPTION DRUG MONITORING REPORT IN PATIENT ROBERT: Not Applicable Instructions: Otitis Media, Adult, [id number], Pharyngitis, [id number] Referrals: PCP,None [Primary Care Provider] - Forms: ED Department Discharge Care Plan Goals: Ear infection and pharyngitis -Levaquin 500 mg po once a day -push fluids, take medication as directed -take Motrin or Tylenol as needed for pain or fever -follow up in Primary Care for ear recheck in 10 days Return to ER for any increased pain,fever, nausea, vomiting, diarrhea, rash or any concerns. Sepsis Event Note (ED) - Focused Exam Vital Signs: Vital Signs Temp Temp Pulse Resp BP Pulse Ox 07/01/21 21:49 100.0 F 07/01/21 21:12 103.1 F H 129 H 20 117/76 95 07/01/21 20:59 103.1 F H 07/01/21 19:50 103.1 F H 129 H 20 117/76 95 - Problem List & Annotations (1) Otitis media SNOMED Code(s): 47871825 Code(s): H66.90 - OTITIS MEDIA, UNSPECIFIED, UNSPECIFIED EAR Status: Acute Priority: High Current Visit: Yes Qualifiers: Otitis media type: suppurative Chronicity: acute Laterality: bilateral Spontaneous tympanic membrane rupture: without spontaneous rupture (2) Pharyngitis SNOMED Code(s): 429654913 Code(s): J02.9 - ACUTE PHARYNGITIS, UNSPECIFIED Status: Acute Priority: High Current Visit: Yes Qualifiers: Pharyngitis/tonsillitis etiology: unspecified etiology Qualified Code(s): J02.9 - Acute pharyngitis, unspecified - Problem List Review Problem List Initiated/Reviewed/Updated: Yes - My Orders Last 24 Hours: My Active Orders 07/01/21 20:30 Sodium Chloride 0.9% [Normal Saline] 1,000 ml IV ASDIRECTED 07/01/21 21:05 CULTURE STREP A CONFIRMATION [RM] Stat STREP SCRN A RAPID W CULT CONF [] Stat 07/01/21 21:20 Levofloxacin/Dextrose 5%-Water [Levaquin in D5W 500 MG/100 ML] 500 mg Premix Bag 1 bag IV ONETIME - Assessment/Plan Last 24 Hours: My Active Orders 07/01/21 20:30 Sodium Chloride 0.9% [Normal Saline] 1,000 ml IV ASDIRECTED 07/01/21 21:05 CULTURE STREP A CONFIRMATION [RM] Stat STREP SCRN A RAPID W CULT CONF [] Stat 07/01/21 21:20 Levofloxacin/Dextrose 5%-Water [Levaquin in D5W 500 MG/100 ML] 500 mg Premix Bag 1 bag IV ONETIME Plan: Ear infection and pharyngitis -Levaquin 500 mg po once a day -push fluids, take medication as directed -take Motrin or Tylenol as needed for pain or fever -follow up in Primary Care for ear recheck in 10 days Return to ER for any increased pain,fever, nausea, vomiting, diarrhea, rash or any concerns.
[2021-07-01 21:12] VITALS: BP 117/76; PULSE 129
[2021-07-01] MEDS ORDERED: Levofloxacin/Dextrose 5%-Water 500 MG in Premix Bag 1 BAG IV ONE (21:20)
== END 2021-07-01 22:52 | disposition home or self-care (01) ==
LOC: JP.ED 18:46
DX: J02.9 Acute pharyngitis, unspecified (principal); H66.93 Otitis media, unspecified, bilateral; K21.9 Gastro-esophageal reflux disease without esophagitis; Z79.899 Other long term (current) drug therapy; Z88.0 Allergy status to penicillin; Z88.8 Allergy status to other drugs, medicaments and biological substances; Z72.0 Tobacco use; Z20.822 Contact with and (suspected) exposure to COVID-19
CPT/HCPCS: 36415; 80053; 81001; 81025; 85025; 87081; 87635; 87880; 96365; 99283; A9270; J1956; J7030; U0002